=== PATIENT | female | born 1975 | race Caucasian/White ===

== ENCOUNTER → 2017-09-27 14:41 | Outpatient (CLI) | payer OTHER, SELFPAY ==
[2017-09-27 16:37] LABS: Iron 66 ug/dL (50-170); Iron Binding Capacity,Total 332 ug/dL (250-450)
== END ==
PROVIDERS: Family Provider Internal Medicine; PCP Internal Medicine; Visit Provider Internal Medicine Hematology & Oncology
DX: D50.0 Iron deficiency anemia secondary to blood loss (chronic) (principal); K90.9 Intestinal malabsorption, unspecified
CPT/HCPCS: 36415; 83540; 83550

== ENCOUNTER → 2017-10-09 13:47 | Outpatient (CLI) | payer OTHER, SELFPAY ==
[2017-10-09 15:20] LABS: Absolute Lymphocyte Count 2.45 X10^3/ul (0.83-4.51); Absolute Neutrophil Count 5.1 X10^3/uL (2.0-7.7); Basophil# 0.03 X10^3/uL; Basophil% 0.4 % (0-1); Eosinophil# 0.24 X10^3/uL; Hematocrit 42.6 % (37-47); Hemoglobin 13.7 g/dl (12.0-15.0); Lymphocyte # 2.45 X10^3/ul (4.0); Lymphocyte % 30.2 % (19-41); Mean Corp Hgb Conc 32.2 g/gl (32-36); Mean Corpuscular Hgb 29.8 pg (27.0-32.0); Mean Corpuscular Volume 92.6 fL (81-99); Mean Platelet Vol. 10.1 fl (6.2-12.0); Monocyte# 0.31 X10^3/uL; Monocyte% 3.8 % (0-10); Neutrophil # 5.07 X10^3/uL (2.7-7.7); Neutrophil % 62.5 % (47-70); Platelet Count 360 K/mm3 (150-450); RBC Distribution Width CV 15.1 % (11.6-14.6); RBC Distribution Width SD 50.2 fl (35.1-43.9); White Blood Count 8.1 K/mm3 (4.4-11.0)
[2017-10-09 15:28] LABS: POSITIVE COUNT NO; POSITIVE DIFFERENTIAL NO; POSITIVE MORPHOLOGY NO
[2017-10-09 15:40] LABS: Ferritin 563 ng/mL (8-252)
== END ==
PROVIDERS: Family Provider Internal Medicine; PCP Internal Medicine; Visit Provider Internal Medicine Hematology & Oncology
DX: D50.0 Iron deficiency anemia secondary to blood loss (chronic) (principal); N39.0 Urinary tract infection, site not specified
CPT/HCPCS: 36415; 82728; 85025; 87086; 87088

== ENCOUNTER → 2017-10-18 15:55 | Outpatient (CLI) | payer OTHER, SELFPAY | PROVIDERS: Family Provider Internal Medicine; PCP Internal Medicine; Visit Provider Nurse Practitioner Adult Health | DX: N39.0 Urinary tract infection, site not specified (principal) | CPT/HCPCS: 87077; 87086; 87088; 87186 ==

== ENCOUNTER → 2017-10-30 17:52 | Outpatient (CLI) | payer OTHER, SELFPAY | PROVIDERS: PCP Internal Medicine; Visit Provider Nurse Practitioner Adult Health | DX: R30.0 Dysuria (principal) | CPT/HCPCS: 87086; 87088 ==

== ENCOUNTER → 2017-12-06 10:49 | Outpatient (CLI) | payer OTHER, SELFPAY ==
[2017-12-06 11:00] LABS: Mucous, Urine 0 SEEN /hpf (<or=2+); Red Blood Cells-Urine 0 SEEN /hpf (0-5); White Blood Cells 0 SEEN /hpf (0-5)
[2017-12-06 11:54] LABS: Absolute Lymphocyte Count 2.33 X10^3/ul (0.83-4.51); Absolute Neutrophil Count 9.5 X10^3/uL (2.0-7.7); Basophil# 0.04 X10^3/uL; Basophil% 0.3 % (0-1); Eosinophil# 0.81 X10^3/uL; Eosinophils% 6.1 % (0-5); Hematocrit 45.3 % (37-47); Hemoglobin 14.5 g/dl (12.0-15.0); Lymphocyte # 2.33 X10^3/ul (4.0); Lymphocyte % 17.6 % (19-41); Mean Corpuscular Hgb 30.7 pg (27.0-32.0); Mean Corpuscular Volume 95.8 fL (81-99); Mean Platelet Vol. 10.2 fl (6.2-12.0); Monocyte# 0.58 X10^3/uL; Monocyte% 4.4 % (0-10); Neutrophil # 9.48 X10^3/uL (2.7-7.7); Neutrophil % 71.4 % (47-70); Platelet Count 410 K/mm3 (150-450); RBC Distribution Width CV 13.4 % (11.6-14.6); RBC Distribution Width SD 46.8 fl (35.1-43.9); Red Blood Count 4.73 M/mm3 (4.2-5.4); White Blood Count 13.3 K/mm3 (4.4-11.0)
[2017-12-06 11:56] LABS: Erythrocyte Sedimentation Rate 30 mm/hr (0-20)
[2017-12-06 11:57] LABS: POSITIVE COUNT NO; POSITIVE DIFFERENTIAL NO; POSITIVE MORPHOLOGY NO
[2017-12-06 12:11] LABS: Color, Urine Yellow (Yellow); Glucose, Dipstick Normal (Normal); Ketone-Dipstick Negative (Negative); Leukocyte Esterase-Dipstick Negative /ul (Negative); Nitrite-Dipstick Negative (Negative); Occult Blood-Urine Negative /ul (Negative); Protein-Dipstick Negative (Negative); Specific Gravity, Urine 1.015 (1.002-1.030); Urine Bilirubin Dipstick Negative (Negative); Urine Clarity Sl. Cloudy (Clear); Urine Urobilinogen Normal (Normal); Urine pH 6.5 (5.0 - 8.0)
[2017-12-06 12:34] LABS: Bacteria 1+ /hpf (None Seen); Squamous Epithelial Cells - UA 0-5 SEEN /hpf (5-10)
[2017-12-06 12:46] LABS: Progesterone Level 28.67 ng/mL (See Comment); Vitamin D,25 Hydroxy 14.1 ng/mL (29.95-100.01)
[2017-12-06 12:57] LABS: ALB/GLOB Ratio 0.9 RATIO (0.9-2.4); AST(SGOT) 27 U/L (15-37); Alanine Aminotransfer ALT/SGPT 44 U/L (13-56); Albumin, Serum 3.8 g/dL (3.2-5.0); Alkaline Phosphatase 95 U/L (45-117); Anion Gap 7 (5-15); BUN 10 mg/dL (7-18); BUN/Creat Ratio 14.1 RATIO (10-20); Calcium,Total 9.1 mg/dL (8.5-10.1); Chloride 104 mmol/L (98-107); Creatinine, Serum 0.71 mg/dL (0.55-1.02); EST Glomerular Filtration Rate 97 mL/min (>60); Est Glom Filt Rate - Afr Amer 117 mL/min (>60); Estradiol 76.7 pg/mL; Globulin 4.4 g/dL (2.2-4.2); Glucose 76 mg/dL (74-106); Iron 65 ug/dL (50-170); Iron Binding Capacity,Total 374 ug/dL (250-450); Potassium 3.8 mmol/L (3.5-5.1); Protein, Total 8.2 g/dL (6.4-8.2); Sodium Level 139 mmol/L (136-145); Thyroid Stim Hormone (TSH) 1.62 uIU/mL (0.358-3.74)
== END ==
PROVIDERS: Family Provider Internal Medicine; PCP Internal Medicine; Visit Provider Internal Medicine
DX: N92.0 Excessive and frequent menstruation with regular cycle (principal); R35.8 Other polyuria; R30.0 Dysuria; E55.9 Vitamin D deficiency, unspecified; M79.1 Myalgia; D64.9 Anemia, unspecified; R60.0 Localized edema; R74.0 Nonspecific elevation of levels of transaminase and lactic acid dehydrogenase [LDH]; R53.81 Other malaise; R80.9 Proteinuria, unspecified
CPT/HCPCS: 80053; 81001; 82306; 82670; 83540; 83550; 84144; 84443; 85025; 85652; 86140; 87086; 87088

== ENCOUNTER → 2018-05-06 15:00 | Outpatient (CLI) | payer OTHER, SELFPAY ==
[2018-05-06 15:12] LABS: Mucous, Urine 0 SEEN /hpf (<or=2+)
[2018-05-06 15:38] LABS: Color, Urine Yellow (Yellow); Glucose, Dipstick Normal (Normal); Ketone-Dipstick Negative (Negative); Leukocyte Esterase-Dipstick 500 /ul (Negative); Nitrite-Dipstick Positive (Negative); Occult Blood-Urine 150 /ul (Negative); Protein-Dipstick Negative (Negative); Urine Bilirubin Dipstick Negative (Negative); Urine Clarity Sl. Cloudy (Clear); Urine Urobilinogen 1 mg/dl (Normal); Urine pH 6.5 (5.0 - 8.0)
[2018-05-06 15:55] LABS: Squamous Epithelial Cells - UA 0-5 SEEN /hpf (5-10); White Blood Cells 10-25 SEEN /hpf (0-5)
[2018-05-06 15:57] LABS: Bacteria 2+ /hpf (None Seen); Red Blood Cells-Urine 10-25 SEEN /hpf (0-5)
== END ==
PROVIDERS: Family Provider Internal Medicine; PCP Internal Medicine; Visit Provider Physician Assistant Medical
DX: R39.15 Urgency of urination (principal)
CPT/HCPCS: 81001; 87077; 87086; 87088; 87186

== ENCOUNTER → 2018-05-21 16:03 | Outpatient (CLI) | payer OTHER, SELFPAY | PROVIDERS: Visit Provider Obstetrics & Gynecology | DX: Z01.89 Encounter for other specified special examinations (principal) | CPT/HCPCS: 87086; 87088 ==

== ENCOUNTER → 2018-06-25 07:09 | Outpatient (CLI) | payer OTHER, SELFPAY ==
[2018-06-28 03:08] LABS: Cortisol, Urinary Free 22 ug/L (Undefined)
[2018-06-29 11:13] LABS: Cortisol, Free 24Ur 69 ug/24 hr (0-50)
== END ==
LOC: LAB 07:13 → LABSPEC 07:16
PROVIDERS: Family Provider Internal Medicine; PCP Internal Medicine
DX: R73.03 Prediabetes (principal); E66.01 Morbid (severe) obesity due to excess calories; Z68.43 Body mass index [BMI] 50.0-59.9, adult
CPT/HCPCS: 82530

== ENCOUNTER → 2018-06-27 08:07 | Outpatient (CLI) | payer OTHER, SELFPAY ==
[2018-06-27 08:57] LABS: Absolute Lymphocyte Count 2.31 X10^3/ul (0.83-4.51); Absolute Neutrophil Count 8.2 X10^3/uL (2.0-7.7); Basophil# 0.02 X10^3/uL; Basophil% 0.2 % (0-1); Eosinophil# 0.12 X10^3/uL; Eosinophils% 1.1 % (0-5); Hematocrit 43.6 % (37-47); Hemoglobin 13.8 g/dl (12.0-15.0); Lymphocyte # 2.31 X10^3/ul (4.0); Lymphocyte % 20.7 % (19-41); Mean Corp Hgb Conc 31.7 g/gl (32-36); Mean Corpuscular Hgb 29.6 pg (27.0-32.0); Mean Corpuscular Volume 93.6 fL (81-99); Monocyte# 0.55 X10^3/uL; Monocyte% 4.9 % (0-10); Neutrophil # 8.17 X10^3/uL (2.7-7.7); POSITIVE COUNT NO; POSITIVE DIFFERENTIAL NO; POSITIVE MORPHOLOGY NO; Platelet Count 394 K/mm3 (150-450); RBC Distribution Width CV 13.6 % (11.6-14.6); RBC Distribution Width SD 46.2 fl (35.1-43.9); Red Blood Count 4.66 M/mm3 (4.2-5.4); White Blood Count 11.2 K/mm3 (4.4-11.0)
[2018-06-27 09:36] LABS: Hemoglobin A1c 6.4 % (4.2-6.3)
[2018-06-27 09:41] LABS: ALB/GLOB Ratio 0.9 RATIO (0.9-2.4); AST(SGOT) 25 U/L (15-37); Alanine Aminotransfer ALT/SGPT 39 U/L (13-56); Albumin, Serum 3.7 g/dL (3.2-5.0); Alkaline Phosphatase 82 U/L (45-117); Anion Gap 7 (5-15); BUN 9 mg/dL (7-18); BUN/Creat Ratio 12.7 RATIO (10-20); Calcium,Total 8.7 mg/dL (8.5-10.1); Chloride 105 mmol/L (98-107); Cholesterol 184 mg/dL (200); Creatinine, Serum 0.71 mg/dL (0.55-1.02); EST Glomerular Filtration Rate 97 mL/min (>60); Est Glom Filt Rate - Afr Amer 117 mL/min (>60); Ferritin 292 ng/mL (8-252); Globulin 4.2 g/dL (2.2-4.2); Glucose 102 mg/dL (74-106); High Density Lipoprotein 47 mg/dL; Iron 69 ug/dL (50-170); Iron Binding Capacity,Total 333 ug/dL (250-450); Protein, Total 7.9 g/dL (6.4-8.2); Sodium Level 139 mmol/L (136-145); Thyroid Stim Hormone (TSH) 1.54 uIU/mL (0.358-3.74); Triglycerides 110 mg/dL; Very Low Density Lipoprotein 22 mg/dL (5-40)
[2018-06-27 11:36] LABS: Vitamin B12 330 pg/mL (211-911); Vitamin D,25 Hydroxy 10.7 ng/mL (29.95-100.01)
[2018-07-02 11:53] LABS: Vitamin B1, Thiamine 107.4 nmol/L (66.5-200.0)
== END ==
PROVIDERS: Family Provider Internal Medicine; PCP Internal Medicine
DX: E66.01 Morbid (severe) obesity due to excess calories (principal); Z68.43 Body mass index [BMI] 50.0-59.9, adult; R73.03 Prediabetes; K21.9 Gastro-esophageal reflux disease without esophagitis; G47.33 Obstructive sleep apnea (adult) (pediatric)
CPT/HCPCS: 36415; 80053; 80061; 82306; 82607; 82728; 82746; 83036; 83540; 83550; 84425; 84443; 85025

== ENCOUNTER → 2018-07-17 13:49 | Outpatient (CLI) | payer OTHER, SELFPAY ==
--- NOTE | 2018-07-17 14:03 | RAD_ITS ---
STUDY: X-RAY CHEST REASON FOR EXAM: Female, 43 years old. Preop bariatric surgery. TECHNIQUE: PA and lateral views of the chest. COMPARISON: Portable AP upright chest x-ray as well as CTA chest/thorax April 10, 2017. FINDINGS: The lungs are clear and expanded. There is no demonstrated pleural abnormality. Normal size heart. Normal mediastinum and marco a. Normal visualized pulmonary arteries. Normal visualized aortic arch and descending thoracic aorta. There are stable mild degenerative changes of the visualized thoracic spine. Normal visualized ribs, clavicles, and shoulders. There is no demonstrated abnormality of the visualized soft tissue structures of the upper abdomen. RAD/Chest PA and Lateral IMPRESSION: No acute cardiopulmonary disease. Electronically Signed: Clifford Teresa MD at 20:02 EST , Service support ,
--- NOTE | 2018-07-17 14:29 | EKG12_ITS ---
Test Reason : PRE OP Blood Pressure : / mmHG Vent. Rate : 074 BPM Atrial Rate : 074 BPM P-R Int : 154 ms QRS Dur : 086 ms QT Int : 382 ms P-R-T Axes : 059 021 039 degrees QTc Int : 424 ms Normal sinus rhythm Normal ECG Confirmed by PARKER JIMENEZ, CHAUNCEY ([id number]), video effects editor YUNIEL TRINH ([id number]) on 07/18/2018 11:23:58 AM Referred By: ROMAN KAMARA Confirmed By:CHAUNCEY CANALES MD
== END ==
PROVIDERS: Family Provider Internal Medicine; PCP Internal Medicine
DX: R73.03 Prediabetes (principal); E66.01 Morbid (severe) obesity due to excess calories; Z68.43 Body mass index [BMI] 50.0-59.9, adult; G47.33 Obstructive sleep apnea (adult) (pediatric); K21.9 Gastro-esophageal reflux disease without esophagitis
CPT/HCPCS: 71046; 93005

== ENCOUNTER → 2018-09-24 07:56 | Outpatient (CLI) | payer OTHER, SELFPAY | PROVIDERS: Family Provider Internal Medicine; PCP Internal Medicine | DX: E66.01 Morbid (severe) obesity due to excess calories (principal); Z68.43 Body mass index [BMI] 50.0-59.9, adult | CPT/HCPCS: 36415; 82533 ==

== ENCOUNTER → 2019-02-25 09:40 | Outpatient (CLI) | payer OTHER, SELFPAY ==
[2019-02-25 09:55] LABS: Absolute Lymphocyte Count 2.04 X10^3/ul (0.83-4.51); Absolute Neutrophil Count 6.5 X10^3/uL (2.0-7.7); Basophil# 0.03 X10^3/uL; Basophil% 0.3 % (0-1); Eosinophil# 0.32 X10^3/uL; Eosinophils% 3.4 % (0-5); Hematocrit 42.1 % (37-47); Hemoglobin 13.6 g/dl (12.0-15.0); Lymphocyte # 2.04 X10^3/ul (4.0); Mean Corp Hgb Conc 32.3 g/gl (32-36); Mean Corpuscular Hgb 29.1 pg (27.0-32.0); Mean Corpuscular Volume 90.1 fL (81-99); Mean Platelet Vol. 10.2 fl (6.2-12.0); Monocyte# 0.39 X10^3/uL; Monocyte% 4.2 % (0-10); Neutrophil # 6.49 X10^3/uL (2.7-7.7); Neutrophil % 69.9 % (47-70); Platelet Count 373 K/mm3 (150-450); RBC Distribution Width CV 14.1 % (11.6-14.6); RBC Distribution Width SD 46.2 fl (35.1-43.9); Red Blood Count 4.67 M/mm3 (4.2-5.4); White Blood Count 9.3 K/mm3 (4.4-11.0)
[2019-02-25 10:00] LABS: POSITIVE COUNT NO; POSITIVE DIFFERENTIAL NO; POSITIVE MORPHOLOGY NO
[2019-02-25 10:37] LABS: ALB/GLOB Ratio 0.9 RATIO (0.9-2.4); AST(SGOT) 27 U/L (15-37); Alanine Aminotransfer ALT/SGPT 38 U/L (13-56); Albumin, Serum 3.5 g/dL (3.2-5.0); Alkaline Phosphatase 93 U/L (45-117); Anion Gap 8 (5-15); BUN 11 mg/dL (7-18); BUN/Creat Ratio 14.7 RATIO (10-20); Calcium,Total 8.8 mg/dL (8.5-10.1); Chloride 109 mmol/L (98-107); Creatinine, Serum 0.75 mg/dL (0.55-1.02); EST Glomerular Filtration Rate 91 mL/min (>60); Est Glom Filt Rate - Afr Amer 110 mL/min (>60); Globulin 4.1 g/dL (2.2-4.2); Glucose 93 mg/dL (74-106); Potassium 3.9 mmol/L (3.5-5.1); Protein, Total 7.6 g/dL (6.4-8.2); Sodium Level 141 mmol/L (136-145); Thyroid Stim Hormone (TSH) 1.57 uIU/mL (0.358-3.74)
[2019-02-25 10:49] LABS: Vitamin D,25 Hydroxy 18.7 ng/mL (29.95-100.01)
== END ==
PROVIDERS: Family Provider Internal Medicine; PCP Internal Medicine; Referring Provider Internal Medicine; Visit Provider Internal Medicine
DX: R79.82 Elevated C-reactive protein (CRP) (principal); E55.9 Vitamin D deficiency, unspecified; R53.81 Other malaise; D72.829 Elevated white blood cell count, unspecified; D64.9 Anemia, unspecified
CPT/HCPCS: 36415; 80053; 82306; 84443; 85025; 86140

== ENCOUNTER → 2019-03-15 13:47 | Outpatient (CLI) | payer OTHER, SELFPAY ==
[2019-03-15 09:56] VITALS: BMI 53.2
[2019-03-15 14:04] LABS: Color, Urine Yellow (Yellow); Glucose, Dipstick Normal (Normal); Ketone-Dipstick Negative (Negative); Leukocyte Esterase-Dipstick 500 /ul (Negative); Nitrite-Dipstick Negative (Negative); Occult Blood-Urine 25 /ul (Negative); Protein-Dipstick Negative (Negative); Urine Bilirubin Dipstick Negative (Negative); Urine Clarity Sl. Cloudy (Clear); Urine Urobilinogen Normal (Normal); Urine pH 6.5 (5.0 - 8.0)
[2019-03-15 14:15] LABS: Bacteria 1+ /hpf (None Seen); Mucous, Urine RARE /hpf (<or=2+); Red Blood Cells-Urine 0-5 SEEN /hpf (0-5); Squamous Epithelial Cells - UA 0-5 SEEN /hpf (5-10); White Blood Cells 10-25 SEEN /hpf (0-5)
== END ==
PROVIDERS: Family Provider Internal Medicine; PCP Internal Medicine; Referring Provider Physician Assistant Surgical; Visit Provider Physician Assistant Surgical
DX: R30.0 Dysuria (principal)
CPT/HCPCS: 81001; 87086; 87088; 87186

== ENCOUNTER 2019-04-01 06:03 | Day surgery (SDC) | payer OTHER, SELFPAY ==
--- NOTE | 2019-03-23 08:37 | HP_ITS ---
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 Safety Required: No Is patient in pain?: No Allergies erythromycin base Allergy (Unknown, Verified 03/23/19 11:16) Unknown [place] Allergy (Verified 03/23/19 11:16) Anaphylaxis latex Allergy (Verified 03/23/19 11:16) hives morphine Allergy (Verified 03/23/19 11:16) Hives Medications Albuterol Inhaler [Ventolin Hfa] 1 puff INHALATION Q6H PRN PRN 10/23/14 [History Confirmed 03/23/19] Fluticasone Propionate [Flonase Allergy Relief] 2 spray NASAL DAILY 04/10/17 [History Confirmed 03/23/19] Progesterone,Micronized [Prometrium] 400 mg PO QHS 06/01/17 [History Confirmed 03/23/19] montelukast 10 mg tablet 10 mg PO DAILY 05/06/18 [History Confirmed 03/23/19] cholecalciferol (vitamin D3) 50,000 unit capsule 50,000 unit PO QWEEK 03/23/19 [History Confirmed 03/23/19] omeprazole 20 mg capsule,delayed release 40 mg PO DAILY cap 03/23/19 [History Confirmed 03/23/19] [facility] Medical History Sleep apnea (Acute) Acid reflux (Acute) Cystitis (Acute) Back pain (Acute) Hay fever (Acute) Anemia (Acute) NSAID induced gastritis (Acute) DUB (dysfunctional uterine bleeding) (Chronic) Morbid obesity (Chronic) Hypoxia (Acute) Atypical chest pain (Acute) Asthma (Chronic) Surgical History Hx of colonoscopy (Acute) History of esophagogastroduodenoscopy (EGD) (Acute) History of cholecystectomy (Acute) History of tonsillectomy (Acute) Family History Mother Heart disease Hypertension Social History (Updated 03/25/19 @ 11:48 by Andrea Beavers MD) Smoking Status: Never smoker second hand exposure: No alcohol intake: never substance use type: does not use caffeine: Yes what type of physical activity do you participate in: walking frequency: 3-4 times per week HPI HPI HPI: TERRI MCFARLAND, is a 44 F who presents to the office today for HPI HPI Surgical H&P: Yes HPI: TERRI MCFARLAND, is a 44 F who presents to the office today for evaluation for endoscopy. Patient will be undergoing gastric bypass surgery and needs to have a preoperative EGD. She has had a history of having irritation in her stomach secondary to NSAID use. Currently she is asymptomatic. ROS General General: No weight change, appetite, fatigue, colon cancer, breast cancer or weakness HEENT HEENT: Yes swollen glands; no difficulty swallowing, eye injury, eye surgery or hoarseness Endo Endocrine: No thyroid disease, diabetes mellitus, thyroid cancer, Hair loss, heat intolerance or cold intolerance Skin Skin: No rash or changing moles Breast Breast: No left breast lump, right breast lump, nipple discharge, breast pain, abnormal mammogram, abnormal US or breast enlargement Musc Musculoskeletal: No back problems, arthritis, rheumatoid arthritis, gout or joint pain Cardio Cardiovascular: No murmur, pacemaker, heart disease, atrial fibrillation, high blood pressure, heart attack, heart stent, palpitations, shortness of breat with exertion or chest pain Psych Psychiatric: No depression, anxiety or hearing voices Resp Respiratory: No shortness of breath, Yes sleep apnea, No cough, No COPD, Yes asthma, No emphysema, No wheezing Gastro Gastrointestinal: No abdominal pain, No nausea or vomiting, No diarrhea, No constipation, No blood in stool, Yes acid reflux, No hemorrhoids, No ulcers, No gallbladder problem, No black,tarry stools [place] Hematologic: No blood thinners, No blood disorders, No bleeding, Yes anemia, No blood clots Neuro Neurologic: No system reviewed and no additional complaints, except as docu, No as per HPI, No abnormal walking, No abnormal hearing, No abnormal movements, No abnormal speech, No behavioral changes, No burning sensations, No confusion, No seizure-like activity, No unsteadiness, No dizziness, No localized weakness, No frequent falls, No headache(s), No lack of coordination, No loss of vision, No memory loss, No numbness, No other visual disturbances, No radiating pain, No restless legs, No sensory deficit, No fainting, No tingling, No tremor(s), No weakness, No other Exam Const General: no acute distress, well developed, well hydrated Orientation: oriented to person, oriented to place, oriented to time [facility] Head: normocephalic, atraumatic Ears: external ears normal Mouth: moist mucous membranes Eyes Sclera: sclerae normal Pupils: normal by confrontation Neck Neck: no lymphadenopathy noted Neck mass: No Thyroid: thyroid normal, symmetrical Chest Chest palpation & inspection: normal inspection of the chest Breast Palpation: No nipple discharge Resp Effort & Inspection: normal respiratory effort Auscultation: clear to auscultation bilaterally Percussion: percussion normal Cardio Rate: regular rate Rhythm: regular rhythm Heart Sounds: no murmurs GI Inspection: obesity Palpation: soft, no hepatosplenomegaly, no masses, nontender Rectal Exam: other Other: Rectal exam deferred. Extrem General: normal to inspection, no clubbing, cyanosis or edema Assessment & Plan Problems 1. Morbid obesity E66.01 2. NSAID induced gastritis K29.60; T39.395A Plan I have discussed the above with the patient. I have offered the patient esophagogastroduodenoscopy for evaluation. I have explained the risks/benefits of the procedure and described the procedure. I have discussed the risks with the patient, including but not limited to: infection, bleeding, perforation of the GI tract requiring emergency surgery, inability to complete the procedure, injury to any internal organs, complications of anesthesia, etc. - the patient understands and agrees to proceed. I have answered all the patient's questions to the patient's satisfaction and the patient has no further questions. The patient has been given instructions for the colon cleansing preparation. Coding Level of Care Code Off vis,est,level 3 Diagnoses Morbid obesity E66.01 NSAID induced gastritis K29.60; T39.395A 03/25/19 1148 <Electronically signed by Andrea dhillon MD> Date _ Andrea Beavers MD I have re-examined the patient. There are no clinical changes since date of exam.
[2019-03-23 11:13] VITALS: BMI 53.2
[2019-04-01] VITALS (7 sets, daily range): BP systolic 102–141; BP diastolic 53–111; PULSE 66–76; RESP 16–18; TEMP 36.6–37.1; O2SAT 97–100; BMI 54.9
--- NOTE | 2019-04-01 | GASB_PTH ---
PATIENT: TERRI MCFARLAND LOC: EN U#:[id number] AGE/SX: 44/F ROOM: RE04/01/[address]: Dr. Andrea Beavers MD : 1975 BED: DIS: 04/01/2019 SPEC #: [id number] RECD: 04/01/19 12:24 STATUS: MARLENE MELISSA #: [id number] DAHLIA: 04/01/19 00:[address]: Andrea Beavers DEPT: SURGICAL PATHOLOGY RECD BY: Velasquez Whitt ENTERED: 04/01/19 12:24 SP TYPE: Gastric Bx OTHR DR: Dr. Tomy Fish MD Tissues: Gastric mucous membrane Procedures: Surgery Specimen Level IV HEADER OPERATION: EGD ([facility] [place]) PRE-OP DIAGNOSIS: NSAID-induced gastritis; preoperative screening for gastric bypass TISSUE SUBMITTED: Antrum biopsy, H. pylori and path MICROSCOPIC DIAGNOSIS Antrum, biopsy: Mild gastritis. See microscopic description and comment. SJ:dmitry 04/02/19 COMMENT The results of immunohistochemistry for Helicobacter pylori will be reported separately ([id number]). MICROSCOPIC DESCRIPTION Slides are reviewed. The specimen shows fragments of gastric mucosa with chronic inflammatory cell infiltrates in the lamina propria consisting of lymphocytes and plasma cells, consistent with mild chronic gastritis. A minute lymphoid aggregate is also noted, favor benign. GROSS DESCRIPTION Received in fixative is one container labeled with the patient's name and designated antral biopsy. The specimen consists of one irregular fragment of light bacon soft tissue that measures 0.7 x 0.3 x 0.1 cm. The specimen is totally submitted in one cassette. / ROSALBA:dmitry 04/01/19 TC:3 CPT: 80500
[2019-04-01 06:35] LABS: Internal QC Validated? YES +Cl - CLEAR BKGD; Pregnancy, Urine Negative Negative
--- NOTE | 2019-04-01 07:00 | IMM_PTH ---
PATIENT: TERRI MCFARLAND LOC: EN U#:[id number] AGE/SX: 44/F ROOM: RE04/01/[address]: Dr. Andrea Beavers MD : 1975 BED: DIS: 04/01/2019 SPEC #: [id number] RECD: 04/01/19 12:37 STATUS: MARLENE REQ #: [id number] DAHLIA: 04/01/19 07:[address]: Andrea Beavers DEPT: IMMUNOHISTOCHEMISTRY RECD BY: Zamzam Contreras ENTERED: 04/01/19 12:38 SP TYPE: IMMUNO OTHR DR: Dr. Tomy Fish MD Tissues: Stomach, NOS Procedures: H Pylori (initial) PHYSICIAN & INSTITUTION [place] [id number] SPECIMEN INFORMATION: Tissue Source: Antrum biopsy Clinical Info: NSAID-inducted gastritis; preoperative screening for gastric bypass Specimen Number: [id number] CPT code: 90004 METHODOLOGY: Deparaffinized sections of prefer/formalin-fixed tissue or PAP/DQ stained slides are incubated with monoclonal/polyclonal antibodies/oligonucleotide probes. Localization is made via biotin free immunoperoxidase method. Appropriate controls are performed and reacted as expected. Results on target cell population are indicated in the following table: RESULTS: ANTIBODY / CLONE RESULT H Pylori (polyclonal) negative These tests were developed and their performance characteristics determined by [facility]. They may not have been cleared or approved by the U.S. Food and Drug Administration. The FDA has determined that such clearance or approval is not necessary. INTERPRETATION: Antrum biopsy: Negative for Helicobacter pylori organisms. SJ:dmitry 04/02/19
--- NOTE | 2019-04-01 07:22 | OP.ENDO_ITS ---
04/01/2019 Tomy Fish Re : Upper GI endoscopy procedure for Ada Alcazar Dear Polina This procedure was performed on Monday, April 01, 2019. My impressions and recommendations are as follows: Impressions : - Normal esophagus. - Erythematous mucosa in the prepyloric region of the stomach. Biopsied. - Normal examined duodenum. No specimens collected. Recommendations : - Discharge patient to home. - Resume previous diet. - Continue present medications. - Repeat upper endoscopy (date not yet determined). - Return to referring physician at appointment to be scheduled. My findings are described in the full procedure note, which is enclosed. If I can be of further assistance, please feel free to contact me at Doctor phone number(s): , Fax: [phone], Work: . Sincerely, MD Andrea Harper MD 04/01/2019 7:21:47 AM This report has been signed electronically.
== END 2019-04-01 07:55 | disposition home or self-care (01) ==
LOC: EN 06:04 → AC 06:04
PROVIDERS: Anesthesiology; Family Provider Internal Medicine; PCP Internal Medicine; Referring Provider Internal Medicine; Visit Provider Surgery
PROC: 0DJ08ZZ Inspection of Upper Intestinal Tract, Via Natural or Artificial Opening Endoscopic (ICD-10-PCS; CPT 43235; principal; 2019-04-01 06:55)
DX: K31.89 Other diseases of stomach and duodenum (principal); K29.70 Gastritis, unspecified, without bleeding; T39.395A Adverse effect of other nonsteroidal anti-inflammatory drugs [NSAID], initial encounter; E66.01 Morbid (severe) obesity due to excess calories; Z87.11 Personal history of peptic ulcer disease; Z68.43 Body mass index [BMI] 50.0-59.9, adult
CPT/HCPCS: 43239; 81025; 88305; 88342; J7120

== ENCOUNTER → 2019-04-03 08:08 | Outpatient (CLI) | payer OTHER, SELFPAY ==
[2019-04-01 06:38] VITALS: BMI 54.9
--- NOTE | 2019-04-03 08:10 | BI_ITS ---
MAMMOGRAPHY - BILATERAL SCREENING REASON FOR EXAM: Female, 44 years old. Routine annual screening examination. PERTINENT HISTORY: Grandmother with breast cancer. TECHNIQUE: Digital bilateral breast angela (3D mammographic acquisition) in the CC and MLO projections. 2-D mediolateral oblique (MLO) and craniocaudad (CC) views of both breasts were obtained. CAD: Full Field Digital Mammography with Computer Added Detection was performed. COMPARISON: None. Baseline examination. FINDINGS: Breast Composition: The breasts are almost entirely fatty. There are no dominant masses or suspicious calcifications. No other significant abnormalities are identified. BI/SCREEN MAMM (CAD) W/ANGELA BILAT IMPRESSION: Negative screening mammogram. Yearly followup mammogram recommended. (A) ASSESSMENT CATEGORY: BIRADS Category 1: Negative. A letter regarding these results will be sent to the patient by the facility within 30 days. Approximately 10% of breast cancers are not detected by mammography. A normal mammogram should not delay biopsy of a clinically suspicious abnormality. [id number] Electronically Signed: Colby Robison, at 10:04 EDT , Service support ,
== END ==
PROVIDERS: Family Provider Internal Medicine; PCP Internal Medicine; Referring Provider Internal Medicine; Visit Provider Internal Medicine
DX: Z12.31 Encounter for screening mammogram for malignant neoplasm of breast (principal)
CPT/HCPCS: 77063; 77067

== ENCOUNTER → 2019-07-01 17:03 | Outpatient (CLI) | payer OTHER, SELFPAY ==
[2019-05-12 17:20] VITALS: BMI 50.5
== END ==
PROVIDERS: Family Provider Internal Medicine; PCP Internal Medicine; Visit Provider Nurse Practitioner Adult Health
DX: N39.0 Urinary tract infection, site not specified (principal)
CPT/HCPCS: 87086; 87088

== ENCOUNTER → 2019-11-14 08:43 | Outpatient (CLI) | payer OTHER, SELFPAY ==
[2019-05-12 17:20] VITALS: BMI 50.5
[2019-11-14 09:23] LABS: Hematocrit 42.9 % (37-47); Hemoglobin 13.8 g/dL (12.0-15.0); Mean Corp Hgb Conc 32.2 g/dL (32-36); Mean Corpuscular Hgb 30.5 pg (27.0-32.0); Mean Corpuscular Volume 94.9 fL (81-99); Platelet Count 357 K/mm3 (150-450); RBC Distribution Width CV 13.2 % (11.6-14.6); RBC Distribution Width SD 45.7 fl (35.1-43.9); Red Blood Count 4.52 M/mm3 (4.2-5.4); White Blood Count 8.5 K/mm3 (4.4-11.0)
[2019-11-14 09:48] LABS: Vitamin B12 770 pg/mL (211-911); Vitamin D,25 Hydroxy 41.5 ng/mL
[2019-11-14 09:50] LABS: Hemoglobin A1c 5.2 % (4.2-6.3)
[2019-11-14 10:28] LABS: ALB/GLOB Ratio 1.1 RATIO (0.9-2.4); AST(SGOT) 34 U/L (15-37); Alanine Aminotransfer ALT/SGPT 50 U/L (13-56); Albumin, Serum 3.5 g/dL (3.2-5.0); Alkaline Phosphatase 111 U/L (45-117); Anion Gap 3 (5-15); BUN 7 mg/dL (7-18); BUN/Creat Ratio 12.6 RATIO (10-20); Calcium,Total 8.7 mg/dL (8.5-10.1); Chloride 108 mmol/L (98-107); Cholesterol 147 mg/dL (200); Creatinine, Serum 0.56 mg/dL (0.55-1.02); EST Glomerular Filtration Rate 127 mL/min (>60); Est Glom Filt Rate - Afr Amer 153 mL/min (>60); Globulin 3.2 g/dL (2.2-4.2); Glucose 81 mg/dL (74-106); High Density Lipoprotein 44 mg/dL; Iron 81 ug/dL (50-170); Iron Binding Capacity,Total 282 ug/dL (250-450); Potassium 3.8 mmol/L (3.5-5.1); Protein, Total 6.7 g/dL (6.4-8.2); Sodium Level 141 mmol/L (136-145); Thyroid Stim Hormone (TSH) 1.23 uIU/mL (0.358-3.74); Triglycerides 122 mg/dL; Very Low Density Lipoprotein 24 mg/dL (5-40)
[2019-11-18 13:08] LABS: Vitamin B1, Thiamine 144.8 nmol/L (66.5-200.0)
== END ==
PROVIDERS: PCP Internal Medicine
DX: E66.9 Obesity, unspecified (principal); Z98.84 Bariatric surgery status; Z68.38 Body mass index [BMI] 38.0-38.9, adult
CPT/HCPCS: 36415; 80053; 80061; 82306; 82607; 82746; 83036; 83540; 83550; 83970; 84425; 84443; 85027

== ENCOUNTER → 2020-02-03 13:15 | Outpatient (CLI) | payer OTHER, SELFPAY ==
[2019-05-12 17:20] VITALS: BMI 50.5
[2020-02-03 14:32] LABS: Follicle Stimulating Hormone 3.4 mIU/mL; Luteinizing Hormone 0.7 mIU/mL; Thyroid Stim Hormone (TSH) 1.35 uIU/mL (0.358-3.74)
== END ==
PROVIDERS: PCP Internal Medicine
DX: N91.1 Secondary amenorrhea (principal)
CPT/HCPCS: 36415; 83001; 83002; 84443

== ENCOUNTER → 2020-05-08 15:17 | Outpatient (CLI) | payer OTHER, SELFPAY ==
[2019-05-12 17:20] VITALS: BMI 50.5
--- NOTE | 2020-05-08 15:52 | BI_ITS ---
MAMMOGRAPHY - BILATERAL SCREENING REASON FOR EXAM: Female, 45 years old. Routine annual screening examination. PERTINENT HISTORY: Grandmother with breast cancer. TECHNIQUE: Digital bilateral breast angela (3D mammographic acquisition) in the CC and MLO projections. 2-D mediolateral oblique (MLO) and craniocaudad (CC) views of both breasts were obtained. CAD: Full Field Digital Mammography with Computer Added Detection was performed. COMPARISON: Comparison is made with prior study dated 04/03/2019. FINDINGS: Breast Composition: The breasts are almost entirely fatty. There are no dominant masses or suspicious calcifications. No other significant abnormalities are identified. There has been no significant change since the prior study. BI/SCREEN MAMM (CAD) W/ANGELA BILAT IMPRESSION: Stable bilateral screening mammogram. Yearly follow-up mammogram recommended. (A) ASSESSMENT CATEGORY: BIRADS Category 1: Negative. A letter regarding these results will be sent to the patient by the facility within 30 days. Approximately 10% of breast cancers are not detected by mammography. A normal mammogram should not delay biopsy of a clinically suspicious abnormality. [id number] Electronically Signed: Colby Robison, at 8:25 EDT , Service support ,
== END ==
PROVIDERS: PCP Internal Medicine
DX: Z12.31 Encounter for screening mammogram for malignant neoplasm of breast (principal); Z80.3 Family history of malignant neoplasm of breast
CPT/HCPCS: 77063; 77067

== ENCOUNTER → 2020-09-23 10:31 | Outpatient (CLI) | payer OTHER, SELFPAY ==
[2020-09-23 10:43] LABS: Mucous, Urine 0 SEEN /hpf (<or=2+)
[2020-09-23 10:50] LABS: Glucose, Dipstick Normal (Normal); Ketone-Dipstick Negative (Negative); Leukocyte Esterase-Dipstick 100 /ul (Negative); Nitrite-Dipstick Positive (Negative); Occult Blood-Urine 250 /ul (Negative); Protein-Dipstick 30 mg/dl (Negative); Specific Gravity, Urine 1.015 (1.002-1.030); Urine Clarity Sl. Cloudy (Clear); Urine Urobilinogen 8 mg/dl (Normal)
[2020-09-23 10:53] LABS: Color, Urine SEE COMMENT BELOW (Yellow); Urine Bilirubin Dipstick 6 mg/dL (Negative)
[2020-09-23 10:58] LABS: Red Blood Cells-Urine 25-50 SEEN /hpf (0-5); Squamous Epithelial Cells - UA 5-10 SEEN /hpf (5-10); White Blood Cells 25-50 SEEN /hpf (0-5)
[2020-09-23 10:59] LABS: Bacteria 1+ /hpf (None Seen)
== END ==
PROVIDERS: PCP Internal Medicine; Referring Provider Physician Assistant; Visit Provider Physician Assistant
DX: N39.0 Urinary tract infection, site not specified (principal)
CPT/HCPCS: 81001; 87086; 87088

== ENCOUNTER → 2020-10-07 08:34 | Outpatient (CLI) | payer OTHER, SELFPAY ==
[2020-10-07 10:07] LABS: Absolute Lymphocyte Count 2.16 X10^3/uL (0.83-4.51); Absolute Neutrophil Count 4.4 X10^3/uL (2.0-7.7); Basophil# 0.07 X10^3/uL; Eosinophil# 0.23 X10^3/uL; Eosinophils% 3.2 % (0-5); Hematocrit 42.9 % (37-47); Hemoglobin 13.5 g/dL (12.0-15.0); Lymphocyte # 2.16 X10^3/ul (4.0); Lymphocyte % 29.9 % (19-41); Mean Corp Hgb Conc 31.5 g/dL (32-36); Mean Corpuscular Hgb 30.8 pg (27.0-32.0); Mean Corpuscular Volume 97.7 fL (81-99); Mean Platelet Vol. 10.8 fl (6.2-12.0); Monocyte# 0.37 X10^3/uL; Monocyte% 5.1 % (0-10); NRBC Flagged by Analyzer 0 % (0-5); Neutrophil # 4.37 X10^3/uL (2.7-7.7); Neutrophil % 60.5 % (47-70); Platelet Count 422 K/mm3 (150-450); RBC Distribution Width CV 12.5 % (11.6-14.6); RBC Distribution Width SD 44.9 fl (35.1-43.9); Red Blood Count 4.39 M/mm3 (4.2-5.4); White Blood Count 7.2 K/mm3 (4.4-11.0)
[2020-10-07 10:33] LABS: Vitamin B12 1595 pg/mL (211-911); Vitamin D,25 Hydroxy 26.8 ng/mL
[2020-10-07 11:20] LABS: AST(SGOT) 26 U/L (15-37); Alanine Aminotransfer ALT/SGPT 38 U/L (13-56); Albumin, Serum 3.6 g/dL (3.2-5.0); Alkaline Phosphatase 119 U/L (45-117); Anion Gap 5 (5-15); BUN 6 mg/dL (7-18); BUN/Creat Ratio 10.5 RATIO (10-20); Calcium,Total 8.7 mg/dL (8.5-10.1); Chloride 106 mmol/L (98-107); Cholesterol 183 mg/dL (200); Creatinine, Serum 0.57 mg/dL (0.55-1.02); EST Glomerular Filtration Rate 122 mL/min (>60); Est Glom Filt Rate - Afr Amer 148 mL/min (>60); Globulin 3.5 g/dL (2.2-4.2); Glucose 76 mg/dL (74-106); High Density Lipoprotein 62 mg/dL; Iron 80 ug/dL (50-170); Iron Binding Capacity,Total 316 ug/dL (250-450); Magnesium 2.3 mg/dL (1.6-2.6); Protein, Total 7.1 g/dL (6.4-8.2); Sodium Level 140 mmol/L (136-145); Thyroid Stim Hormone (TSH) 1.58 uIU/mL (0.358-3.74); Triglycerides 122 mg/dL; Very Low Density Lipoprotein 24 mg/dL (5-40)
[2020-10-10 11:50] LABS: Zinc, Plasma or Serum 81 ug/dL (44-115)
== END ==
PROVIDERS: PCP Internal Medicine; Referring Provider Internal Medicine; Visit Provider Internal Medicine
DX: R53.81 Other malaise (principal); D64.9 Anemia, unspecified; E55.9 Vitamin D deficiency, unspecified; K75.81 Nonalcoholic steatohepatitis (NASH); Z98.84 Bariatric surgery status
CPT/HCPCS: 36415; 80053; 80061; 82306; 82607; 82746; 83540; 83550; 83735; 84443; 84630; 85025

== ENCOUNTER → 2020-12-03 07:35 | Outpatient (CLI) | payer OTHER, SELFPAY ==
--- NOTE | 2020-12-03 07:37 | CT_ITS ---
STUDY: CT SOFT TISSUE NECK WITH CONTRAST REASON FOR EXAM: Female, 45 years old. LOCALIZED ENLARGED LYMPH NODES RADIATION DOSAGE (If Supplied By Facility): CTDIvol = ( 18.63 ) mGy, DLP = ( 549.25 ) mGycm TECHNIQUE: The patient was scanned in a multi-detector CT scanner. High resolution transaxial imaging was performed following intravenous administration of IV 100mL Isovue-300. Sagittal and coronal images were reconstructed. Individualized dose optimization techniques were used for this CT. COMPARISON: 2016 FINDINGS: Normal bilateral parotid glands. 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 Normal bilateral parapharyngeal spaces. Normal bilateral carotid spaces. Normal bilateral sublingual and submandibular glands and spaces. Normal visualized nasopharynx. Normal retropharyngeal space. Normal perivertebral space. Normal visualized bilateral faucial tonsils. The visualized tongue, tongue base and oropharynx are normal. The visualized cervical lymph nodes (levels I-) are within normal size limits, and maintain normal morphology. There is no demonstrated solid or cystic mass lesion. There is no abnormal contrast enhancement. All lymph nodes measure less than 1 cm in short axis dimension. There are number and size have not significantly changed since the previous study. Normal epiglottis, bilateral vallecula and hypopharynx. The pre-epiglottic and paraglottic adipose spaces are normal. Normal visualized bilateral piriform sinuses, aryepiglottic folds, vocal cords, and arytenoid-cricoid articulations. Normal subglottic trachea. Normal bilateral lobes of the thyroid gland. Normal visualized pulmonary apices. Normal visualized paranasal sinuses. Normal visualized cervical spine. CT/Soft Tissue Neck WITH Contrast IMPRESSION: Stable scattered subcentimeter in short axis dimension bilateral lymph nodes. There are no suspicious bulky lymph nodes, suspicious enhancing lesion, airway narrowing or deviation. No CT evidence of an acute inflammatory process, no disruption of the fat planes, no induration of the subcutaneous tissue. Electronically Signed: Clifford Pierce MD at 8:21 EDT , Service support ,
== END ==
PROVIDERS: PCP Internal Medicine; Referring Provider Internal Medicine Hematology & Oncology; Visit Provider Internal Medicine Hematology & Oncology
DX: R59.0 Localized enlarged lymph nodes (principal)
CPT/HCPCS: 70491; Q9967

== ENCOUNTER → 2021-01-13 09:45 | Outpatient (CLI) | payer OTHER, SELFPAY ==
[2021-01-13 10:52] LABS: Absolute Lymphocyte Count 2.11 X10^3/uL (0.83-4.51); Absolute Neutrophil Count 4.6 X10^3/uL (2.0-7.7); Basophil# 0.07 X10^3/uL; Eosinophil# 0.09 X10^3/uL; Eosinophils% 1.2 % (0-5); Hematocrit 43.7 % (37-47); Hemoglobin 14.2 g/dL (12.0-15.0); Lymphocyte # 2.11 X10^3/ul (0.83-4.51); Lymphocyte % 29.3 % (19-41); Mean Corp Hgb Conc 32.5 g/dL (32-36); Mean Corpuscular Volume 95.4 fL (81-99); Mean Platelet Vol. 11.1 fl (6.2-12.0); Monocyte# 0.36 X10^3/uL; NRBC Flagged by Analyzer 0 % (0-5); Neutrophil # 4.57 X10^3/uL (2.7-7.7); Neutrophil % 63.4 % (47-70); Platelet Count 354 K/mm3 (150-450); RBC Distribution Width CV 12.3 % (11.6-14.6); RBC Distribution Width SD 43.3 fl (35.1-43.9); Red Blood Count 4.58 M/mm3 (4.2-5.4); White Blood Count 7.2 K/mm3 (4.4-11.0)
[2021-01-13 11:17] LABS: PTHIN 70.9 pg/mL (18.4-80.1)
[2021-01-13 11:21] LABS: Vitamin B12 646 pg/mL (211-911); Vitamin D,25 Hydroxy 26.8 ng/mL
[2021-01-13 11:51] LABS: ALB/GLOB Ratio 1.1 RATIO (0.9-2.4); AST(SGOT) 21 U/L (15-37); Alanine Aminotransfer ALT/SGPT 35 U/L (13-56); Albumin, Serum 3.8 g/dL (3.2-5.0); Alkaline Phosphatase 100 U/L (45-117); Anion Gap 3 (5-15); BUN 9 mg/dL (7-18); BUN/Creat Ratio 14.1 RATIO (10-20); Calcium,Total 8.8 mg/dL (8.5-10.1); Chloride 107 mmol/L (98-107); Creatinine, Serum 0.64 mg/dL (0.55-1.02); EST Glomerular Filtration Rate 108 mL/min (>60); Est Glom Filt Rate - Afr Amer 130 mL/min (>60); Ferritin 240 ng/mL (8-252); Globulin 3.5 g/dL (2.2-4.2); Glucose 80 mg/dL (74-106); Iron 104 ug/dL (50-170); Iron Binding Capacity,Total 325 ug/dL (250-450); Protein, Total 7.3 g/dL (6.4-8.2); Sodium Level 139 mmol/L (136-145)
== END ==
PROVIDERS: PCP Internal Medicine
DX: R73.03 Prediabetes (principal)
CPT/HCPCS: 36415; 80053; 82306; 82607; 82728; 82746; 83036; 83540; 83550; 83970; 85025

== ENCOUNTER → 2021-02-08 13:07 | Outpatient (CLI) | payer OTHER, SELFPAY ==
--- NOTE | 2021-02-08 13:10 | RAD_ITS ---
STUDY: X-RAY - PELVIS REASON FOR EXAM: Female, 45 years old. [place]. 4 month history of low back pain. TECHNIQUE: One view of the pelvis was obtained. COMPARISON: None. FINDINGS: There is a non-specific bowel gas pattern. Normal visualized soft tissue structures. Normal bilateral iliac wings, sacroiliac joints and visualized sacrum. Normal visualized bilateral superior and inferior pubic rami. There is narrowing with sclerosis of the pubic symphysis. Normal ischial tuberosities. Normal visualized right femoral head. Normal right acetabulum. Normal right hip joint. Normal visualized left femoral head. Normal left acetabulum. Normal left hip joint. RAD/Pelvis 1 or 2 Views IMPRESSION: Narrowing and sclerosis of the symphysis pubis. Electronically Signed: Colby Robison MD at 15:43 EDT , Service support ,
== END ==
PROVIDERS: PCP Internal Medicine; Referring Provider Internal Medicine; Visit Provider Internal Medicine
DX: M53.3 Sacrococcygeal disorders, not elsewhere classified (principal)
CPT/HCPCS: 72170

== ENCOUNTER → 2021-02-22 09:15 | Outpatient (CLI) | payer OTHER, SELFPAY ==
[2021-02-22 10:14] LABS: Color, Urine Yellow (Yellow); Glucose, Dipstick Normal (Normal); Ketone-Dipstick Negative (Negative); Leukocyte Esterase-Dipstick Negative /ul (Negative); Nitrite-Dipstick Negative (Negative); Occult Blood-Urine Negative /ul (Negative); Protein-Dipstick Negative (Negative); Urine Bilirubin Dipstick Negative (Negative); Urine Clarity Clear (Clear); Urine Urobilinogen Normal (Normal)
[2021-02-22 10:19] LABS: Protein, Urine (Random) < 6.0 mg/dL (<11.9)
[2021-02-22 10:20] LABS: Protein:Creat Ratio 64 mg/g CRE (0-200)
[2021-02-22 10:31] LABS: Erythrocyte Sedimentation Rate 15 mm/hr (0-30)
[2021-02-22 10:32] LABS: Absolute Lymphocyte Count 1.61 X10^3/uL (0.83-4.51); Basophil# 0.05 X10^3/uL; Basophil% 0.8 % (0-1); Eosinophil# 0.14 X10^3/uL; Eosinophils% 2.2 % (0-5); Hematocrit 40.9 % (37-47); Lymphocyte # 1.61 X10^3/ul (0.83-4.51); Lymphocyte % 25.7 % (19-41); Mean Corp Hgb Conc 31.8 g/dL (32-36); Mean Corpuscular Hgb 30.5 pg (27.0-32.0); Mean Platelet Vol. 10.6 fl (6.2-12.0); Monocyte# 0.45 X10^3/uL; Monocyte% 7.2 % (0-10); NRBC Flagged by Analyzer 0 % (0-5); Neutrophil # 3.99 X10^3/uL (2.7-7.7); Neutrophil % 63.8 % (47-70); Platelet Count 345 K/mm3 (150-450); RBC Distribution Width CV 13.1 % (11.6-14.6); RBC Distribution Width SD 45.8 fl (35.1-43.9); Red Blood Count 4.26 M/mm3 (4.2-5.4); White Blood Count 6.3 K/mm3 (4.4-11.0)
[2021-02-22 11:33] LABS: ALB/GLOB Ratio 1.2 RATIO (0.9-2.4); AST(SGOT) 22 U/L (15-37); Alanine Aminotransfer ALT/SGPT 34 U/L (13-56); Albumin, Serum 3.7 g/dL (3.2-5.0); Alkaline Phosphatase 104 U/L (45-117); Anion Gap 9 (5-15); BUN 7 mg/dL (7-18); BUN/Creat Ratio 11.9 RATIO (10-20); CPK Total, Creatine Kinase 66 U/L (26-192); CRP < 2.90 mg/L (0.0-3.0); Calcium,Total 8.5 mg/dL (8.5-10.1); Chloride 103 mmol/L (98-107); Creatinine, Serum 0.59 mg/dL (0.55-1.02); EST Glomerular Filtration Rate 118 mL/min (>60); Est Glom Filt Rate - Afr Amer 143 mL/min (>60); Globulin 3.2 g/dL (2.2-4.2); Glucose 82 mg/dL (74-106); Potassium 3.8 mmol/L (3.5-5.1); Protein, Total 6.9 g/dL (6.4-8.2); Rheumatoid Factor < 10.0 IU/mL (<15); Sodium Level 140 mmol/L (136-145)
--- NOTE | 2021-02-22 12:00 | RAD_ITS ---
STUDY: X-RAY - LUMBAR SPINE REASON FOR EXAM: Female, 46 years old. SWELLING TECHNIQUE: 3 view(s) of the lumbar spine were obtained. COMPARISON: None FINDINGS: Normal lumbar lordosis. There is no substantial scoliosis. There is a normal alignment of the vertebrae. Normal vertebral bodies and endplates. Normal disc space heights. There is no demonstrated fracture. The soft tissue structures are unremarkable. RAD/Lumbar Spine 2 or 3 Views IMPRESSION: Normal x-ray examination of the lumbar spine. Electronically Signed: Chris Somers MD at 17:14 EDT , Service support ,
--- NOTE | 2021-02-22 12:06 | RAD_ITS ---
STUDY: X-RAY - PELVIS REASON FOR EXAM: Female, 46 years old. SWELLING TECHNIQUE: One view of the pelvis was obtained. COMPARISON: None. FINDINGS: There is a non-specific bowel gas pattern. Normal visualized soft tissue structures. Normal bilateral iliac wings, sacroiliac joints and visualized sacrum. Normal visualized bilateral superior and inferior pubic rami. There are degenerative changes of the pubic symphysis with articular narrowing and sclerosis. Normal ischial tuberosities. Normal visualized right femoral head. Normal right acetabulum. Normal right hip joint. Normal visualized left femoral head. Normal left acetabulum. Normal left hip joint. RAD/Pelvis 1 or 2 Views IMPRESSION: No definite acute or significant abnormality seen. Electronically Signed: Chris Somers MD at 16:58 EDT , Service support ,
--- NOTE | 2021-02-22 12:07 | RAD_ITS ---
STUDY: X-RAY - RIGHT FOOT CLINICAL: Right foot joint pain at multiple sites, swelling. TECHNIQUE: 3 view(s) of the foot. COMPARISON: None. FINDINGS: There is a plantar calcaneal enthesophyte. Otherwise, unremarkable talus, calcaneus, and tarsal bones. There is a type II accessory navicular. Normal visualized subtalar, talonavicular, calcaneocuboid, tarsal and tarsometatarsal articulations. There is a well corticated ossification at the base of the fifth metatarsal, likely from remote injury. Normal metatarsophalangeal joint of the great toe. Normal tibial and fibular sesamoid bones. Normal interphalangeal joint of the great toe. Normal phalanges of the great toe. Normal second through fifth metatarsophalangeal joints. Normal interphalangeal joints and phalanges of the lesser toes. The soft tissue structures are unremarkable. RAD/Foot min 3 Views IMPRESSION: Well-corticated ossification at the base of the fifth metatarsal, likely from remote injury. Plantar calcaneal enthesophyte. Electronically Signed: Seb Booth MD at 13:01 EDT Tel , Service support ,
--- NOTE | 2021-02-22 12:09 | RAD_ITS ---
STUDY: X-RAY - LEFT FOOT CLINICAL: Left foot joint pain at multiple sites, swelling. TECHNIQUE: 3 view(s) of the foot. COMPARISON: None. FINDINGS: There is a plantar calcaneal enthesophyte. Otherwise, unremarkable talus, calcaneus, and tarsal bones. There is a type II accessory navicular. Normal visualized subtalar, talonavicular, calcaneocuboid, tarsal and tarsometatarsal articulations. Normal metatarsi. Normal metatarsophalangeal joint of the great toe. Normal tibial and fibular sesamoid bones. Normal interphalangeal joint of the great toe. Normal phalanges of the great toe. Normal second through fifth metatarsophalangeal joints. Normal interphalangeal joints and phalanges of the lesser toes. The soft tissue structures are unremarkable. RAD/Foot min 3 Views IMPRESSION: Plantar calcaneal enthesophyte. Otherwise, unremarkable x-ray examination of the left foot. Electronically Signed: Seb Booth MD at 13:02 EDT Tel , Service support ,
[2021-02-22 12:11] LABS: Hepatitis B Surface Antibody Reactive; Hepatitis B Surface Antigen Non-Reactive (Nonreactive); Hepatitis C Antibody Non-Reactive (Nonreactive); Vitamin D,25 Hydroxy 28.1 ng/mL
--- NOTE | 2021-02-22 12:12 | RAD_ITS ---
STUDY: X-RAY - LEFT HAND REASON FOR EXAM: Joint pain of the left hand at multiple sites, swelling. TECHNIQUE: 3 view(s) of the hand. COMPARISON: None. FINDINGS: Normal radiocarpal articulation. Normal distal radioulnar joint. Normal visualized carpal bones. Normal carpal articulations Normal carpometacarpal articulation of the thumb. Normal second through fifth carpometacarpal joints. Normal metacarpi. Normal metacarpophalangeal joint of the thumb. Normal interphalangeal joint of the thumb. Normal proximal and distal phalanges of the thumb. Normal metacarpophalangeal joints of the second through fifth fingers. Normal proximal and distal interphalangeal joints of the second through fifth fingers. Normal phalanges of the second through fifth fingers. The soft tissue structures are unremarkable. RAD/Hand Min 3 Views IMPRESSION: Normal x-ray examination of the left hand. Electronically Signed: Seb Booth MD at 12:30 EDT Tel , Service support ,
--- NOTE | 2021-02-22 12:13 | RAD_ITS ---
STUDY: X-RAY - RIGHT HAND REASON FOR EXAM: Joint pain of the right hand at multiple sites, swelling. TECHNIQUE: 3 view(s) of the hand. COMPARISON: None. FINDINGS: Normal radiocarpal articulation. Normal distal radioulnar joint. Normal visualized carpal bones. Normal carpal articulations Normal carpometacarpal articulation of the thumb. Normal second through fifth carpometacarpal joints. Normal metacarpi. Normal metacarpophalangeal joint of the thumb. Normal interphalangeal joint of the thumb. Normal proximal and distal phalanges of the thumb. Normal metacarpophalangeal joints of the second through fifth fingers. Normal proximal and distal interphalangeal joints of the second through fifth fingers. Normal phalanges of the second through fifth fingers. The soft tissue structures are unremarkable. RAD/Hand Min 3 Views IMPRESSION: Normal x-ray examination of the right hand. Electronically Signed: Seb Booth MD at 12:36 EDT Tel , Service support ,
[2021-02-23 20:13] LABS: RNP Ab 0.2 AI (0.0-0.9); SJOGREN'S Anti-SS-A test < 0.2 AI (0.0-0.9); SJOGREN'S Anti-SS-B test < 0.2 AI (0.0-0.9); Smith Ab <0.2 AI (0.0-0.9)
[2021-02-24 13:26] LABS: Anti-Nuclear Antibody Test Negative (.); Anti-dsDNA Ab <1 IU/mL (0-9)
[2021-02-27 16:07] LABS: Immunoglobulin A 98 mg/dL (87-352); Immunoglobulin D Quant 2.95 mg/dL (<14.11); Immunoglobulin E 98 IU/mL (6-495); Immunoglobulin G 821 mg/dL (586-1602); Immunoglobulin M 96 mg/dL (26-217)
[2021-02-28 07:50] LABS: CCP IgG Antibodies 3 units (0-19); Hepatitis B Core Ab Total Negative (Negative)
== END ==
PROVIDERS: PCP Internal Medicine; Referring Provider Internal Medicine; Visit Provider Internal Medicine
DX: M25.50 Pain in unspecified joint (principal)
CPT/HCPCS: 36415; 72100; 72170; 73130; 73630; 80053; 81002; 82306; 82550; 82570; 82784; 82785; 84156; 85025; 85652; 86038; 86140; 86200; 86225; 86235; 86431; 86704; 86706; 86803; 87340

== ENCOUNTER → 2021-05-11 07:42 | Outpatient (CLI) | payer OTHER, SELFPAY ==
--- NOTE | 2021-05-11 07:50 | BI_ITS ---
MAMMOGRAPHY - BILATERAL SCREENING REASON FOR EXAM: Female, 46 years old. Routine annual screening examination. PERTINENT HISTORY: Grandmother with breast cancer. TECHNIQUE: Digital bilateral breast angela (3D mammographic acquisition) in the CC and MLO projections. 2-D mediolateral oblique (MLO) and craniocaudad (CC) views of both breasts were obtained. CAD: Full Field Digital Mammography with Computer Added Detection was performed. COMPARISON: Comparison is made with prior study 05/08/2020 and 04/03/2019. FINDINGS: Breast Composition: The breasts are almost entirely fatty. There are no dominant masses or suspicious calcifications. Stable small benign-appearing bilateral axillary lymph nodes. No other significant abnormalities are identified. There has been no significant change since the prior study. BI/SCRN MAMM (CAD)W/ANGELA BILAT IMPRESSION: Stable bilateral screening mammogram. Yearly follow-up mammogram recommended. (A) ASSESSMENT CATEGORY: BIRADS Category 2: Benign. A letter regarding these results will be sent to the patient by the facility within 30 days. Approximately 10% of breast cancers are not detected by mammography. A normal mammogram should not delay biopsy of a clinically suspicious abnormality. [id number] Electronically Signed: Colby Robison MD at 9:16 EDT , Service support ,
== END ==
PROVIDERS: PCP Internal Medicine; Referring Provider Internal Medicine; Visit Provider Internal Medicine
DX: Z12.31 Encounter for screening mammogram for malignant neoplasm of breast (principal); Z80.3 Family history of malignant neoplasm of breast
CPT/HCPCS: 77063; 77067

== ENCOUNTER → 2021-05-20 07:17 | Outpatient (CLI) | payer OTHER, SELFPAY ==
--- NOTE | 2021-05-20 07:22 | MRI_ITS ---
History: LUMBAGO, left hip/thigh pain Technique: T1 and T2 MR imaging of the lumbar spine performed without contrast enhancement in axial and sagittal planes. Findings: Limited the lumbar vertebral bodies is normal. No bone edema. Minor narrowing of the L5-S1 disc space. Narrowing of the T11-12 disc space associated with posterior disc protrusion. No significant compression of the thecal sac at the T11-12 level. Conus medullaris and cauda equina are normal. Paraspinal soft tissues are normal. L1-2: No disc protrusion. Normal caliber spinal canal and neural foramina. L2-3: No disc protrusion. Normal caliber spinal canal and neural foramina. L3-4: No disc protrusion. Normal caliber spinal canal and neural foramina. L4-5: No disc protrusion. Normal caliber spinal canal and neural foramina. L5-S1: No disc protrusion. Normal caliber spinal canal. Narrowing of the neural foramina related to vertebral body hypertrophy. IMPRESSION: No spinal stenosis. L5-S1 neural foraminal narrowing related to vertebral body hypertrophy. at 0835 Reported and signed by: Papa Mahoney MD Electronically Signed: Papa Mahoney MD at 8:34 EDT Tel , Service support , MRI/Spine Lumbar (Routine)
== END ==
PROVIDERS: PCP Internal Medicine; Referring Provider Internal Medicine; Visit Provider Internal Medicine
DX: M54.40 Lumbago with sciatica, unspecified side (principal)
CPT/HCPCS: 72148

== ENCOUNTER → 2021-07-20 11:19 | Outpatient (CLI) | payer OTHER, SELFPAY ==
[2021-07-20 11:23] LABS: Mucous, Urine 0 SEEN /hpf (<or=2+)
[2021-07-20 12:47] LABS: Color, Urine Yellow (Yellow); Glucose, Dipstick Normal (Normal); Ketone-Dipstick Negative (Negative); Leukocyte Esterase-Dipstick 100 /ul (Negative); Nitrite-Dipstick Negative (Negative); Occult Blood-Urine 250 /ul (Negative); Protein-Dipstick Negative (Negative); Urine Bilirubin Dipstick Negative (Negative); Urine Clarity Sl. Cloudy (Clear); Urine Urobilinogen Normal (Normal)
[2021-07-20 12:57] LABS: Bacteria 1+ /hpf (None Seen); Red Blood Cells-Urine 25-50 SEEN /hpf (0-5); Squamous Epithelial Cells - UA 0-5 SEEN /hpf (5-10); White Blood Cells 10-25 SEEN /hpf (0-5)
== END ==
PROVIDERS: PCP Internal Medicine; Referring Provider Obstetrics & Gynecology; Visit Provider Obstetrics & Gynecology
DX: N39.0 Urinary tract infection, site not specified (principal)
CPT/HCPCS: 36415; 81001; 87086

== ENCOUNTER 2021-10-16 11:09 | Outpatient (CLI) | payer OTHER, SELFPAY ==
[2021-10-16 12:04] LABS: Color, Urine Yellow (Yellow); Glucose, Dipstick Normal (Normal); Ketone-Dipstick Negative (Negative); Leukocyte Esterase-Dipstick Negative /ul (Negative); Nitrite-Dipstick Negative (Negative); Occult Blood-Urine Negative /ul (Negative); Protein-Dipstick Negative (Negative); Urine Bilirubin Dipstick Negative (Negative); Urine Clarity Clear (Clear); Urine Urobilinogen Normal (Normal); Urine pH 6.5 (5.0 - 8.0)
[2021-10-16 12:14] LABS: Erythrocyte Sedimentation Rate 7 mm/hr (0-30)
[2021-10-16 12:15] LABS: Absolute Lymphocyte Count 2.29 X10^3/uL (0.83-4.51); Absolute Neutrophil Count 5.1 X10^3/uL (2.0-7.7); Basophil# 0.06 X10^3/uL; Basophil% 0.7 % (0-1); Eosinophil# 0.13 X10^3/uL; Eosinophils% 1.6 % (0-5); Hematocrit 39.5 % (37-47); Hemoglobin 13.2 g/dL (12.0-15.0); Lymphocyte # 2.29 X10^3/ul (0.83-4.51); Lymphocyte % 28.4 % (19-41); Mean Corp Hgb Conc 33.4 g/dL (32-36); Mean Corpuscular Hgb 32.5 pg (27.0-32.0); Mean Corpuscular Volume 97.3 fL (81-99); Mean Platelet Vol. 10.5 fl (6.2-12.0); Monocyte# 0.41 X10^3/uL; Monocyte% 5.1 % (0-10); NRBC Flagged by Analyzer 0 % (0-5); Neutrophil # 5.14 X10^3/uL (2.7-7.7); Neutrophil % 63.8 % (47-70); Platelet Count 408 K/mm3 (150-450); RBC Distribution Width CV 12.6 % (11.6-14.6); RBC Distribution Width SD 44.6 fl (35.1-43.9); Red Blood Count 4.06 M/mm3 (4.2-5.4); White Blood Count 8.1 K/mm3 (4.4-11.0)
[2021-10-16 12:28] LABS: ALB/GLOB Ratio 1.1 RATIO (0.9-2.4); AST(SGOT) 23 U/L (15-37); Alanine Aminotransfer ALT/SGPT 41 U/L (13-56); Albumin, Serum 3.6 g/dL (3.2-5.0); Alkaline Phosphatase 109 U/L (45-117); Anion Gap 3 (5-15); BUN 10 mg/dL (7-18); BUN/Creat Ratio 17.2 RATIO (10-20); CRP < 2.90 mg/L (0.0-3.0); Calcium,Total 8.2 mg/dL (8.5-10.1); Chloride 109 mmol/L (98-107); Creatinine, Serum 0.58 mg/dL (0.55-1.02); EST Glomerular Filtration Rate 119 mL/min (>60); Est Glom Filt Rate - Afr Amer 145 mL/min (>60); Globulin 3.3 g/dL (2.2-4.2); Glucose 87 mg/dL (74-106); Potassium 3.6 mmol/L (3.5-5.1); Protein, Total 6.9 g/dL (6.4-8.2); Protein, Urine (Random) < 6.0 mg/dL (<11.9); Sodium Level 140 mmol/L (136-145)
[2021-10-17 10:07] LABS: Complement C3 158 mg/dL (82-167)
[2021-10-17 13:24] LABS: Hepatitis B Core Ab Total Negative (Negative)
[2021-10-18 10:15] LABS: Hepatitis B Surface Antibody Reactive; Hepatitis B Surface Antigen Non-Reactive (Nonreactive); Hepatitis C Antibody Non-Reactive (Nonreactive); Vitamin D,25 Hydroxy 36.2 ng/mL
[2021-10-19 20:08] LABS: RNP Ab 0.2 AI (0.0-0.9)
[2021-10-20 10:17] LABS: Anti-Nuclear Antibody Test Negative (.); Anti-dsDNA Ab <1 IU/mL (0-9)
== END 2021-10-16 23:59 | disposition home or self-care (01) ==
LOC: LAB 11:10
PROVIDERS: PCP Internal Medicine; Referring Provider Internal Medicine; Visit Provider Internal Medicine
DX: M25.50 Pain in unspecified joint (principal)
CPT/HCPCS: 36415; 80053; 81002; 82306; 82570; 84156; 85025; 85652; 86038; 86140; 86160; 86225; 86235; 86704; 86706; 86803; 87340

== ENCOUNTER → 2022-02-03 | Outpatient (CLI) | payer OTHER, SELFPAY ==
[2022-02-03 08:34] LABS: PTHIN 50.8 pg/mL (18.4-80.1)
[2022-02-03 08:38] LABS: Vitamin B12 792 pg/mL (211-911); Vitamin D,25 Hydroxy 42.4 ng/mL
[2022-02-03 09:18] LABS: Ferritin 238 ng/mL (8-252); Iron 66 ug/dL (50-170); Iron Binding Capacity,Total 353 ug/dL (250-450)
[2022-02-08 15:49] LABS: Vitamin B1, Thiamine 189.5 nmol/L (66.5-200.0)
== END | disposition home or self-care (01) ==
LOC: LAB 07:20
PROVIDERS: PCP Internal Medicine
DX: E66.9 Obesity, unspecified (principal); Z68.36 Body mass index [BMI] 36.0-36.9, adult; Z48.815 Encounter for surgical aftercare following surgery on the digestive system
CPT/HCPCS: 36415; 82306; 82607; 82728; 82746; 83540; 83550; 83970; 84425

== ENCOUNTER → 2022-05-18 | Outpatient (CLI) | payer OTHER, SELFPAY ==
--- NOTE | 2022-05-18 08:26 | BI_ITS ---
MAMMOGRAPHY - BILATERAL SCREENING 3-D TOMOSYNTHESIS REASON FOR EXAM: Female, 47 years old. SCREENING PERTINENT HISTORY: No significant family history. TECHNIQUE: 2-D mammograms and 3-D Tomosynthesis of the breast (s) were performed. CAD was performed. COMPARISON: 05/11/2021 FINDINGS: The breast composition is composed of scattered fibroglandular density. Scattered benign calcifications are seen. No dense spiculated masses or suspicious microcalcifications are identified. No architectural distortion is identified. There is no skin thickening or retraction. There has been no significant change since the prior study. BI/SCRN MAMM (CAD)W/ANGELA BILAT IMPRESSION: No mammographic signs of malignancy. Routine yearly mammograms recommended. ASSESSMENT CATEGORY: BIRADS Category 1: Negative. A letter regarding these results will be sent to the patient by the facility within 30 days. FOLLOW UP RECOMMENDATION: Yearly follow up mammogram recommended. (A) Approximately 10% of breast cancers are not detected by mammography. A normal mammogram should not delay biopsy of a clinically suspicious abnormality. Electronically Signed: Josué Richards MD at 9:03 EDT ,
== END | disposition home or self-care (01) ==
LOC: OPBI 08:22
PROVIDERS: PCP Internal Medicine
DX: Z12.31 Encounter for screening mammogram for malignant neoplasm of breast (principal)
CPT/HCPCS: 77063; 77067

== ENCOUNTER 2022-06-10 07:29 | Day surgery (SDC) | payer OTHER, SELFPAY ==
[2022-06-10] VITALS (7 sets, daily range): BP systolic 96–108; BP diastolic 42–62; PULSE 59–65; RESP 16; TEMP 36.2–36.6; O2SAT 96–100; BMI 36.1
[2022-06-10] MEDS: Lactated Ringers 1,000 ML 15 ML IV (07:35)
--- NOTE | 2022-06-10 07:56 | HP.PCM_ITS ---
[facility] - General General Date of Service: 06/10/22 Chief Complaint: Screening for intestinal cancer [facility] Narrative TERRI MCFARLAND, is a 47 F who presents for screening colonoscopy today. She has a family history with a first-degree relative with stomach cancer. No h istory of colon cancer. She is age 47 and presents for screening examination. No abdominal pain. No bright red blood per rectum or melena. No unexpected weight loss. No history of DVT. She is not on any anticoagulant. [facility] Medical History (Updated 06/08/22 @ 09:55 by Ayla Gaming) Acid reflux Anemia Anxiety Asthma Atypical chest pain Back pain Cystitis DUB (dysfunctional uterine bleeding) Fatty liver Hay fever History of echocardiogram History of IBS History of stress test Hypoxia Morbid obesity NSAID induced gastritis Shortness of breath on exertion Sleep apnea Wears glasses Home Medications albuterol sulfate 90 mcg/actuation aerosol inhaler 1 puff inhalation Q6H PRN PRN Shortness Of Breath 10/23/14 [History Last Taken Unknown] fluticasone propionate 50 mcg/actuation nasal spray,suspension 2 spray NASAL DAILY 04/10/17 [History Last Taken 04/10/17 06:00] montelukast 10 mg tablet 10 mg PO DAILY 05/06/18 [History Last Taken Unknown] cholecalciferol (vitamin D3) 1,250 mcg (50,000 unit) capsule 50,000 unit PO QWEEK 03/23/19 [History Last Taken Unknown] buspirone 5 mg tablet 5 mg PO TID #90 tabs 10/26/20 [Rx Last Taken Unknown] calcium carbonate 600 mg-vitamin D3 10 mcg (400 unit) tablet (Calcium with Vitamin D) 1 tab PO DAILY 05/04/22 [History Last Taken Unknown] cyanocobalamin (vitamin B-12) 1,000 mcg capsule 1,000 mcg PO DAILY 05/04/22 [History Last Taken Unknown] multivitamin 1 tab PO DAILY 05/04/22 [History Last Taken Unknown] vitamin B complex 1 tab PO DAILY 05/04/22 [History Last Taken Unknown] Allergy/AdvReac Type Severity Reaction Status Date / Time erythromycin base Allergy Unknown lip Verified 06/10/22 07:54 swelling [place] Allergy Anaphylaxis Verified 06/10/22 07:54 latex Allergy hives Verified 06/10/22 07:54 morphine Allergy Hives Verified 06/10/22 07:54 Family History (Updated 05/04/22 @ 09:58 by Erma Carty) Mother Heart disease Hypertension Aunt Colon cancer Stomach cancer Surgical History (Updated 06/08/22 @ 09:55 by Ayla Gaming) Gastric bypass status for obesity History of cholecystectomy History of esophagogastroduodenoscopy (EGD) History of tonsillectomy Hx of colonoscopy Social History Smoking Status: Never smoker second hand exposure: No alcohol intake: never substance use type: does not use caffeine: Yes what type of physical activity do you participate in: walking frequency: 3-4 times per week ROS Constitutional Constitutional: Reports systems reviewed and no addt'l complaints, except as documented Cardiovascular Cardiovascular: Denies chest pain Respiratory/Chest Respiratory/Chest: Denies shortness of breath at rest Gastrointestinal Gastrointestinal: Denies abdominal pain, change in bowel habits, hematochezia or melena Physical Exam Const alert, oriented x3 and no apparent distress General Appearance: cooperative and comfortable Eyes General Eye: normal appearance of both eyes Neck General: normal visual inspection Chest inspection of chest normal Resp Effort and Inspection: able to speak in complete sentences and symmetric chest movement Auscultation: clear to auscultation bilaterally Cardio regular rate and regular rhythm GI soft to palpation, non-tender and non-distended Extremity no calf tenderness Neuro oriented x3 Psych thought process normal Assessment & Plan Assessment/Plan (1) Encounter for screening for malignant neoplasm of colon: PLAN: The patient presents for screening colonoscopy today with possible biopsy or polypectomy as indicated. She is aware of the technique, benefit, risk, alternatives. She has had an opportunity to ask and have questions answered. Previous scope approximately 6 years prior. We will proceed as noted. She presents via open access today. Aditya Quintanilla M.D., F.A.C.S.
[2022-06-10 08:05] LABS: Internal QC Validated? YES +Cl - CLEAR BKGD; Pregnancy, Urine Negative Negative
--- NOTE | 2022-06-10 08:57 | OP.COLON_ITS ---
Patient Name: Ada Alcazar Procedure Date: 06/10/2022 8:33 AM Date of : 1975 Age: 47 Procedure: Colonoscopy Indications: Screening for colorectal malignant neoplasm/ Family history of gastric cancer Providers: Aditya Quintanilla MD Medicines: See the Anesthesia note for documentation of the administered medications Patient Profile: Last Colonoscopy: 5 years ago. Complications: No immediate complications. Procedure: Pre-Anesthesia Assessment: - Prior to the procedure, a History and Physical was performed, and patient medications and allergies were reviewed. The patient's tolerance of previous anesthesia was also reviewed. The risks and benefits of the procedure and the sedation options and risks were discussed with the patient. All questions were answered, and informed consent was obtained. Prior Anticoagulants: The patient has taken no previous anticoagulant or antiplatelet agents. ASA Grade Assessment: II - A patient with mild systemic disease. After reviewing the risks and benefits, the patient was deemed in satisfactory condition to undergo the procedure. After I obtained informed consent, the scope was passed under direct vision. Throughout the procedure, the patient's blood pressure, pulse, and oxygen saturations were monitored continuously. The pediatric colonoscope was introduced through the anus and advanced to the cecum, identified by appendiceal orifice and ileocecal valve. The colonoscopy was performed without difficulty. The patient tolerated the procedure well. The quality of the bowel preparation was good. The ileocecal valve and the appendiceal orifice were photographed. Scope In: 8:40:35 AM Scope Withdrawal Time 0 hours 7 minutes 11 seconds Scope Out: 8:51:32 AM Total Procedure Duration Time 0 hours 10 minutes 57 seconds Findings: The digital rectal exam findings include anal fissure. Scattered diverticula were found in the entire colon. The exam was otherwise without abnormality. Impression: - Anal fissure found on digital rectal exam. - Diverticulosis in the entire examined colon. - The examination was otherwise normal. - No specimens collected. Recommendation: - Discharge patient to home. - Resume previous diet. - Continue present medications. - Repeat colonoscopy in 5 years for surveillance. - Return to my office in 1 week if needed to discuss suspected posterior anal fissue; consider biopsy of this area. Procedure Code(s): --- Professional --- 75295, Colonoscopy, flexible; diagnostic, including collection of specimen(s) by brushing or washing, when performed (separate procedure) Diagnosis Code(s): --- Professional --- Z12.11, Encounter for screening for malignant neoplasm of colon K60.2, Anal fissure, unspecified K57.30, Diverticulosis of large intestine without perforation or abscess without bleeding CPT copyright 2017 [employer]. All rights reserved. The codes documented in this report are preliminary and upon auditing coder review may be revised to meet current compliance requirements. Aditya Quintanilla MD 06/10/2022 8:57:14 AM This report has been signed electronically. Number of Addenda: 0 Note Initiated On: 06/10/2022 8:33 AM
--- NOTE | 2022-06-10 08:57 | OP.CCLET_ITS ---
06/10/2022 Tomy Fish Re : Colonoscopy procedure for Ada Alcazar Dear Polina This procedure was performed on Friday, June 10, 2022. My impressions and recommendations are as follows: Impressions : - Anal fissure found on digital rectal exam. - Diverticulosis in the entire examined colon. - The examination was otherwise normal. - No specimens collected. Recommendations : - Discharge patient to home. - Resume previous diet. - Continue present medications. - Repeat colonoscopy in 5 years for surveillance. - Return to my office in 1 week if needed to discuss suspected posterior anal fissue; consider biopsy of this area. My findings are described in the full procedure note, which is enclosed. If I can be of further assistance, please feel free to contact me at Doctor phone number(s): Work: . Sincerely, Aditya Quintanilla MD 06/10/2022 8:57:14 AM This report has been signed electronically.
== END 2022-06-10 09:46 | disposition home or self-care (01) ==
LOC: EN 07:31 → AC 07:31
PROVIDERS: Anesthesiology; PCP Internal Medicine; Referring Provider Internal Medicine; Visit Provider Surgery
PROC: 0DJD8ZZ Inspection of Lower Intestinal Tract, Via Natural or Artificial Opening Endoscopic (ICD-10-PCS; CPT 45378; principal; 2022-06-10 08:25)
DX: Z12.11 Encounter for screening for malignant neoplasm of colon (principal); K57.30 Diverticulosis of large intestine without perforation or abscess without bleeding; Z80.0 Family history of malignant neoplasm of digestive organs; K60.2 Anal fissure, unspecified; Z98.84 Bariatric surgery status
CPT/HCPCS: 45378; 81025; J7120

== ENCOUNTER → 2023-06-26 | Outpatient (CLI) | payer OTHER, SELFPAY ==
--- NOTE | 2023-06-23 11:35 | PCM.PN.BLA ---
Progress Note Pt is under a lot of stress at work and she is not sleeping well at night. She is irritable and having mild panic attacks. HRRR L-CTA abd- soft, NT, ND with normal bowel sounds No ankle edema No rashes Impressions 1. Generalized anxiety with panic attacks - situational Xanax 0.25 mg #30 - 1 PO Q 6H prn anxiety/panic attack.
--- NOTE | 2023-06-26 07:26 | BI_ITS ---
MAMMOGRAPHY - BILATERAL SCREENING REASON FOR EXAM: Female, 48 years old. Routine annual screening examination. PERTINENT HISTORY: Grandmother with breast cancer. TECHNIQUE: Digital bilateral breast angela (3D mammographic acquisition) in the CC and MLO projections. 2-D mediolateral oblique (MLO) and craniocaudad (CC) views of both breasts were obtained. CAD: Full Field Digital Mammography with Computer Added Detection was performed. COMPARISON: Comparison is made with prior study May 18, 2022 and May 11, 2021. FINDINGS: Breast Composition: The breasts are almost entirely fatty. There are no dominant masses or suspicious calcifications. No other significant abnormalities are identified. There has been no significant change since the prior study. BI/SCRN MAMM (CAD)W/ANGELA BILAT IMPRESSION: Stable bilateral screening mammogram. Yearly follow-up mammogram recommended. (A) ASSESSMENT CATEGORY: BIRADS Category 1: Negative. A letter regarding these results will be sent to the patient by the facility within 30 days. Approximately 10% of breast cancers are not detected by mammography. A normal mammogram should not delay biopsy of a clinically suspicious abnormality. [id number] Electronically Signed: Colby Robison MD at 8:57 EDT ,
[2023-06-26 08:08] LABS: Erythrocyte Sedimentation Rate 5 mm/hr (0-30)
[2023-06-26 08:10] LABS: Absolute Lymphocyte Count 1.69 X10^3/uL (0.83-4.51); Absolute Neutrophil Count 4.7 X10^3/uL (2.0-7.7); Basophil# 0.06 X10^3/uL; Basophil% 0.9 % (0-1); Eosinophil# 0.12 X10^3/uL; Eosinophils% 1.7 % (0-5); Hematocrit 42.3 % (37-47); Hemoglobin 13.3 g/dL (12.0-15.0); Lymphocyte # 1.69 X10^3/ul (0.83-4.51); Lymphocyte % 24.2 % (19-41); Mean Corp Hgb Conc 31.4 g/dL (32-36); Mean Corpuscular Hgb 30.8 pg (27.0-32.0); Mean Corpuscular Volume 97.9 fL (81-99); Mean Platelet Vol. 10.8 fl (6.2-12.0); Monocyte# 0.39 X10^3/uL; Monocyte% 5.6 % (0-10); NRBC Flagged by Analyzer 0 % (0-5); Neutrophil # 4.72 X10^3/uL (2.7-7.7); Neutrophil % 67.5 % (47-70); Platelet Count 373 K/mm3 (150-450); RBC Distribution Width CV 12.9 % (11.6-14.6); RBC Distribution Width SD 46.8 fl (35.1-43.9); Red Blood Count 4.32 M/mm3 (4.2-5.4)
[2023-06-26 09:08] LABS: ALB/GLOB Ratio 1.1 RATIO (0.9-2.4); AST(SGOT) 26 U/L (15-37); Alanine Aminotransfer ALT/SGPT 44 U/L (13-56); Albumin, Serum 3.7 g/dL (3.2-5.0); Alkaline Phosphatase 104 U/L (45-117); Anion Gap 4 (5-15); BUN 11 mg/dL (7-18); BUN/Creat Ratio 16.9 RATIO (10-20); CRP < 2.90 mg/L (0.0-3.0); Calcium,Total 8.6 mg/dL (8.5-10.1); Chloride 106 mmol/L (98-107); Cholesterol 184 mg/dL (200); Creatinine, Serum 0.65 mg/dL (0.55-1.02); EST Glomerular Filtration Rate 104 mL/min (>60); Est Glom Filt Rate - Afr Amer 126 mL/min (>60); Globulin 3.5 g/dL (2.2-4.2); Glucose 81 mg/dL (74-106); High Density Lipoprotein 76 mg/dL; Magnesium 2.4 mg/dL (1.6-2.6); Potassium 3.6 mmol/L (3.5-5.1); Protein, Total 7.2 g/dL (6.4-8.2); Sodium Level 139 mmol/L (136-145); Thyroid Stim Hormone (TSH) 2.21 uIU/mL (0.358-3.74); Triglycerides 93 mg/dL; Very Low Density Lipoprotein 19 mg/dL (5-40)
[2023-06-26 10:19] LABS: Vitamin D,25 Hydroxy 43.4 ng/mL
[2023-06-27 12:09] LABS: ANTINUCLEAR ANTIBODIES DIRECT Negative (Negative)
[2023-07-06 16:09] LABS: Zinc, Plasma or Serum 86 ug/dL (44-115)
== END | disposition home or self-care (01) ==
PROVIDERS: PCP Internal Medicine; Referring Provider Internal Medicine; Visit Provider Internal Medicine
DX: Z12.31 Encounter for screening mammogram for malignant neoplasm of breast (principal); Z80.3 Family history of malignant neoplasm of breast; K75.81 Nonalcoholic steatohepatitis (NASH); E55.9 Vitamin D deficiency, unspecified; R76.8 Other specified abnormal immunological findings in serum; D64.9 Anemia, unspecified; Z98.84 Bariatric surgery status
CPT/HCPCS: 36415; 77063; 77067; 80053; 80061; 82306; 83735; 84443; 84630; 85025; 85652; 86038; 86140; 86225; 86235

== ENCOUNTER → 2024-05-20 | Outpatient (CLI) | payer OTHER, SELFPAY ==
--- NOTE | 2024-05-20 17:51 | RAD_ITS ---
STUDY: X-RAY - PELVIS REASON FOR EXAM: Female, 49 years old. LOW BACK PAIN UNSPECIFIED BACK PAIN LATERALITY TECHNIQUE: One view of the pelvis was obtained. COMPARISON: None. FINDINGS: There is a non-specific bowel gas pattern. Normal visualized soft tissue structures. Normal bilateral iliac wings, sacroiliac joints and visualized sacrum. Normal visualized bilateral superior and inferior pubic rami. Normal pubic symphysis. Normal ischial tuberosities. Normal visualized right femoral head. Mild acetabular spurring. Normal right hip joint. Normal visualized left femoral head. Mild acetabular spurring. Normal left hip joint. RAD/Pelvis 1 or 2 Views IMPRESSION: Mild arthritic changes of the hips. No evidence for acute hip or pelvic fracture. Electronically Signed: Sanford Dean MD at 21:46 EDT ,
--- NOTE | 2024-05-20 17:52 | RAD_ITS ---
STUDY: X-RAY - SACROILIAC JOINTS REASON FOR EXAM: Female, 49 years old. Low back pain. TECHNIQUE: 3 view(s) of the sacroiliac joints were obtained. COMPARISON: None. FINDINGS: Mild arthrosis of both sacroiliac joints. Normal visualized sacral ala and sacrum. Mild arthrosis of the symphysis pubis. Normal visualized iliac bones. Normal visualized soft tissue structures. RAD/S-I Jts 3 or More Views IMPRESSION: Mild arthrosis of both sacroiliac joints and the symphysis pubis. Electronically Signed: Alexander Peterson MD at 9:12 EDT ,
--- NOTE | 2024-05-20 17:52 | RAD_ITS ---
STUDY: X-RAY - LUMBAR SPINE REASON FOR EXAM: Female, 49 years old. LOW BACK PAIN UNSPECIFIED BACK PAIN LATERALITY TECHNIQUE: 3 view(s) of the lumbar spine were obtained. COMPARISON: None FINDINGS: Normal lumbar lordosis. There is no substantial scoliosis. There is a normal alignment of the vertebrae. No evidence for acute fracture or subluxation. Mild narrowing of L4-5 disc space and endplate spurring. . Postsurgical changes in the right upper quadrant and left midabdomen. RAD/Lumbar Spine 2 or 3 Views IMPRESSION: Mild spondylosis. No acute fracture or other significant bony pathology. Electronically Signed: Sanford Dean MD at 21:44 EDT ,
== END | disposition home or self-care (01) ==
LOC: LAB 17:46 → RAD 17:48
PROVIDERS: PCP Internal Medicine; Referring Provider Internal Medicine; Visit Provider Internal Medicine
DX: M54.50 Low back pain, unspecified (principal)
CPT/HCPCS: 72100; 72170; 72202

== ENCOUNTER → 2024-07-27 | Outpatient (CLI) | payer OTHER, SELFPAY ==
--- NOTE | 2024-07-27 08:03 | MRI_ITS ---
EXAM: MR PELVIS WITHOUT INTRAVENOUS CONTRAST CLINICAL INDICATION: INFLAMMATORY ARTHRITIS, C/O PAIN L HIP/BACK, NO KNOWN INJURY TECHNIQUE: Multiplanar and multisequence MR images of the pelvis without intravenous contrast. COMPARISON: No relevant prior studies available. FINDINGS: INTRAPERITONEAL SPACE: Normal. No ascites or other fluid collection. BLADDER: Normal. OVARIES: Unremarkable as visualized. No mass or complex cyst. UTERUS/CERVIX: Normal. No mass. Endometrial stripe is normal in thickness and appearance. BONES/JOINTS: Normal. No evidence of sacroiliitis. Bone marrow signal intensity throughout the remainder the pelvis is normal. Visualized spine is normal. SOFT TISSUES: Normal. No pelvic wall hernia. No evidence of tendinopathy. LYMPH NODES: Normal. No enlarged lymph nodes. MRI/Pelvis (Routine) IMPRESSION: No evidence of sacroiliitis. Electronically Signed: Papa Mahoney MD at 17:03 EST ,
== END | disposition home or self-care (01) ==
LOC: MRI 07:51
PROVIDERS: PCP Internal Medicine; Referring Provider Internal Medicine; Visit Provider Internal Medicine
DX: G54.1 Lumbosacral plexus disorders (principal)
CPT/HCPCS: 72195

== ENCOUNTER → 2024-09-24 | Outpatient (CLI) | payer OTHER, SELFPAY ==
[2024-09-24 11:54] LABS: 24HR UR TOTAL VOLUME 1400 ml; Calcium Urine pH Range 1; Urine Calcium (Random) < 5.0 mg/dL (Not Estab.)
== END | disposition home or self-care (01) ==
LOC: LABSPEC 09:45
PROVIDERS: PCP Internal Medicine; Referring Provider Internal Medicine Endocrinology, Diabetes & Metabolism; Visit Provider Internal Medicine Endocrinology, Diabetes & Metabolism
DX: E21.1 Secondary hyperparathyroidism, not elsewhere classified (principal)
CPT/HCPCS: 81050; 82340